=== PATIENT | male | born 1960 | race African-American/Black ===

== ENCOUNTER 2018-10-06 12:47 | Emergency (ER) | payer OTHER ==
[~2018-10-06] VITALS: Ht 182.9 cm; Wt 63.5 kg
[~2018-10-06 12:47] MED LIST: ASPIRIN EC81 MG ORAL; DOCUSATE SODIU100 MG ORAL; FUROSEMIDE40 MG/5 ML ORAL; GLIPIZIDE5 MG ORAL; JANUVIA25 MG ORAL; KENALOG 0.1% CR15 GM APPLIC; LIPITOR80 MG ORAL; LISINOPRIL5 MG ORAL; LORATADINE10 M2 PO; METFORMIN HCL1000 M1 ORAL; NEURONTIN300 MG ORAL; OMEPRAZOLE20 M2 ORAL; PRADAXA110 MG PO; PROCTOZONE-HC30 GM RC
--- NOTE | 2018-10-06 12:50 | NUR ---
ED Nurse Note: Received report. Pt BIBA from home c/o weakness, diarrhea for a few days, and right leg pain 5/10. monitoring engineer applied and VS/BS level taken. Pt stable; awaiting orders.
[2018-10-06 13:00] VITALS: BP 117/70
[2018-10-06] MEDS ORDERED: Sodium Chloride 500ML 500 ML IV ONE ×2 (13:15→13:30)
[2018-10-06 13:30] VITALS: BP 122/84
[2018-10-06] MEDS ORDERED: cefTRIAXone 1 GM in NS 55 ML IVPB ONE (13:30)
[2018-10-06 14:01] LABS: INR 1.1 (0.9-1.1)
[2018-10-06 14:14] LABS: BASOPHILS % (AUTO) 1.8 % (0.0-2.0); EOSINOPHILS % (AUTO) 0.7 % (0.0-3.0); HEMATOCRIT 43.2 % (42.0-52.0); LYMPHOCYTES % (AUTO) 39.8 % (20.0-45.0); MEAN CORPUSCULAR VOLUME 96 FL (80-99); MONOCYTES % (AUTO) 6.3 % (1.0-10.0); NEUTROPHILS % (AUTO) 51.5 % (45.0-75.0); PLATELET COUNT 207 K/UL (150-450)
[2018-10-06 14:24] LABS: ALANINE AMINOTRANSFERASE 137 U/L (12-78); ALBUMIN 3.4 G/DL (3.4-5.0); ALBUMIN/GLOBULIN RATIO 0.9 (1.0-2.7); ALKALINE PHOSPHATASE 145 U/L (46-116); ANION GAP 6 mmol/L (5-15); ASPARTATE AMINO TRANSFERASE 164 U/L (15-37); BILIRUBIN,TOTAL 0.3 MG/DL (0.2-1.0); BLOOD UREA NITROGEN 7 mg/dL (7-18); CALCIUM 8.9 MG/DL (8.5-10.1); CARBON DIOXIDE 30 MMOL/L (21-32); CHLORIDE 99 MMOL/L (98-107); CKMB 5.4 NG/ML (0.0-3.6); CREATINE KINASE 133 U/L (26-308); CREATININE 0.7 MG/DL (0.55-1.30); POTASSIUM 3.9 MMOL/L (3.5-5.1); SODIUM 134 MMOL/L (136-145)
--- NOTE | 2018-10-06 14:36 | Diagnostic Imaging Report ---
EXAM: XR Chest, 1 View CLINICAL HISTORY: Shortness of breath TECHNIQUE: Frontal view of the chest. COMPARISON: Chest x-rays dated FINDINGS: Lungs: Unremarkable. The lungs appear clear. No focal consolidation. Pleural space: Unremarkable. The costophrenic angles are sharp. No visible pneumothorax. Heart: Unremarkable. No cardiomegaly. Mediastinum: Unremarkable. Bones/joints: Unremarkable. Tubes, lines and devices: EKG leads overlie the thorax. IMPRESSION: No acute findings.
--- NOTE | 2018-10-06 14:38 | NUR ---
ED Nurse Note: Pt sleeping, no distress noted.
--- NOTE | 2018-10-06 14:40 | Emergency Room Report ---
History of Present Illness General Chief Complaint: Generalized Weakness Source: Patient Present Illness HPI Patient is a 58-year-old male who presented after increased generalized weakness. Patient reportedly had been having increased diarrheal stools. Patient had recently been hospitalized at [facility] for abscess to his right buttock. Patient had surgical drainage. He has been having increased watery diarrhea. He reports feeling weak all over. Patient had previous CVA with resulting right-sided weakness. Patient was noted to be type II diabetic. He had been followed by home health nurse. Allergies: Coded Allergies: No Known Allergies (Unverified , 07/04/13) Patient History Past Medical History: see triage record Reviewed Nursing Documentation: PMH: Agreed; PSxH: Agreed Nursing Documentation-PMH Past Medical History Deferred: Patient Unconscious Hx Cardiac Problems: Yes - CVA Hx Hypertension: No - Rt hip surgery 08/2018 Hx Diabetes: Yes Hx Gastrointestinal Problems: Yes - PANCREATITIS Review of Systems All Other Systems: negative except mentioned in HPI Physical Exam Vital Signs Date Time Temp Pulse Resp B/P (MAP) Pulse Ox O2 Delivery O2 Flow Rate FiO2 10/06/18 12:41 98.4 78 16 112/70 98 Room Air Sp02 EP Interpretation: reviewed, normal General Appearance: normal inspection, well appearing, no apparent distress, alert, GCS 15, Chronically Ill Head: atraumatic ENT: normal ENT inspection, hearing grossly normal, normal voice Neck: normal inspection, full range of motion, supple, no bony tend Respiratory: normal inspection, lungs clear, normal breath sounds, no respiratory distress, no retraction, no wheezing Cardiovascular #1: regular rate, rhythm, no edema Gastrointestinal: normal inspection, normal bowel sounds, non tender, soft, no guarding, no hernia Genitourinary: no CVA tenderness Musculoskeletal: normal inspection, back normal, normal range of motion Neurologic: alert, responsive, speech normal, motor weakness - right upper and lower extremities Psychiatric: normal inspection, judgement/insight normal, mood/affect normal Skin: no rash, other - slight drainage to right buttock wound, no erythema Medical Decision Making Diagnostic Impression: Primary Impression: generalized weakness Additional Impressions: Uncontrolled diabetes mellitus Diarrhea Dehydration ER Course Patient presented for generalized weakness. Differential diagnosis included was not limited to anemia, urinary tract infection, electrolyte abnormality, hypothyroidism, myocardial infarction, myasthenia gravis, dehydration, among others. Because of complexity of patient's case laboratory testing and imaging studies were ordered. EKG interpreted by me showed normal sinus rhythm with a rate of [address] or T wave changes. Patient was noted to have markedly elevated blood sugar with a greater than 500 level.Patient was noted to have some recent eye infection and likely was treated with IV antibiotics. Given patient's onset of diarrhea this may represent C. difficile colitis. Patient was noted to have some increased generalized weakness. He started on IV hydration. Patient will likely require further inpatient IV hydration and monitoring of his blood sugars. Patient was endorsed to pending final disposition. Laboratory Tests Test 10/06/18 13:09 White Blood Count 4.0 K/UL (4.8-10.8) L Red Blood Count 4.50 M/UL (4.70-6.10) L Hemoglobin 14.0 G/DL (14.2-18.0) L Hematocrit 43.2 % (42.0-52.0) Mean Corpuscular Volume 96 FL (80-99) Mean Corpuscular Hemoglobin 31.0 PG (27.0-31.0) Mean Corpuscular Hemoglobin Concent 32.4 G/DL (32.0-36.0) Red Cell Distribution Width 13.0 % (11.6-14.8) Platelet Count 207 K/UL (150-450) Mean Platelet Volume 10.0 FL (6.5-10.1) Neutrophils (%) (Auto) 51.5 % (45.0-75.0) Lymphocytes (%) (Auto) 39.8 % (20.0-45.0) Monocytes (%) (Auto) 6.3 % (1.0-10.0) Eosinophils (%) (Auto) 0.7 % (0.0-3.0) Basophils (%) (Auto) 1.8 % (0.0-2.0) Prothrombin Time 12.0 SEC (9.30-11.50) H Prothrombin Time INR 1.1 (0.9-1.1) PTT 45 SEC (23-33) H Sodium Level 134 MMOL/L (136-145) L Potassium Level 3.9 MMOL/L (3.5-5.1) Chloride Level 99 MMOL/L (98-107) Carbon Dioxide Level 30 MMOL/L (21-32) Anion Gap 6 mmol/L (5-15) Blood Urea Nitrogen 7 mg/dL (7-18) Creatinine 0.7 MG/DL (0.55-1.30) Estimate Glomerular Filtration Rate > 60 mL/min (>60) Glucose Level 585 MG/DL (74-106) *H Calcium Level 8.9 MG/DL (8.5-10.1) Total Bilirubin 0.3 MG/DL (0.2-1.0) Aspartate Amino Transferase (AST) 164 U/L (15-37) H Alanine Aminotransferase (ALT) 137 U/L (12-78) H Alkaline Phosphatase 145 U/L (46-116) H Total Creatine Kinase 133 U/L (26-308) Creatine Kinase MB 5.4 NG/ML (0.0-3.6) H Creatine Kinase MB Relative Index 4.0 Troponin I 0.012 ng/mL (0.000-0.056) Total Protein 7.2 G/DL (6.4-8.2) Albumin 3.4 G/DL (3.4-5.0) Globulin 3.8 g/dL Albumin/Globulin Ratio 0.9 (1.0-2.7) L Lipase 57 U/L (73-393) L Urine Opiates Screen Negative (NEGATIVE) Urine Barbiturates Screen Negative (NEGATIVE) Phencyclidine (PCP) Screen Negative (NEGATIVE) Urine Amphetamines Screen Negative (NEGATIVE) Urine Benzodiazepines Screen Negative (NEGATIVE) Urine Cocaine Screen Negative (NEGATIVE) Urine Marijuana (THC) Screen Negative (NEGATIVE) Acetone Level Negative (NEGATIVE) EKG Diagnostic Results Rate: normal - 60 Rhythm: NSR ST Segments: no acute changes Last Vital Signs Date Time Temp Pulse Resp B/P (MAP) Pulse Ox O2 Delivery O2 Flow Rate FiO2 10/06/18 13:30 67 12 Room Air 10/06/18 13:30 98.5 122/84 100 Status: unchanged Disposition: XFER SHT-TRM HOSP Condition: Stable Referrals: [facility],REFERRING (PCP) Bernard Brown MD Oct 06, 2018 14:40
[2018-10-06] MEDS ORDERED: Insulin Human Regular 100units/ml 3ml IV ONE (14:45)
[2018-10-06 15:30] VITALS: BP 100/46
[2018-10-06 16:30] VITALS: BP 105/71
--- NOTE | 2018-10-06 17:03 | NUR ---
ED Nurse Note: Pt signed consent for transfer to [facility], will call and give report. ETA 1800 for pickup.
[2018-10-06 18:08] VITALS: BP 112/77
[2018-10-06 18:18] VITALS: BP 112/77
--- NOTE | 2018-10-06 18:18 | NUR ---
ED Nurse Note: phone call report given to KENNETH Jackson
--- NOTE | 2018-10-06 18:22 | NUR ---
ED Nurse Note: pt was given a chicken sandwich. pt.'s belongings were given back to the pt. Pt. transported via gurney with no s/s of acute distress noted
--- NOTE | 2018-10-07 15:26 | Cardiology Report ---
APPROVED REPORT EKG Measurement Heart [id number] Normal sinus rhythm with sinus arrhythmia Normal ECG
== END 2018-10-06 18:22 | disposition short-term general hospital (02) ==
LOC: EDBD 12:47 → EMR 13:36
DX: R53.1 Weakness (principal); E11.65 Type 2 diabetes mellitus with hyperglycemia; R19.7 Diarrhea, unspecified; E86.0 Dehydration; I69.351 Hemiplegia and hemiparesis following cerebral infarction affecting right dominant side
CPT/HCPCS: 36415; 71045; 80053; 80307; 82009; 82550; 82553; 82962; 83690; 84484; 85025; 85610; 85730; 93005; 96361; 96365; 96375; 99285; J0696; J1815

== ENCOUNTER 2019-06-05 20:03 | Emergency (ER) | payer OTHER ==
[~2019-06-05] VITALS: Ht 182.9 cm; Wt 69.4 kg
[2019-06-05 20:05] VITALS: BP 124/72
--- NOTE | 2019-06-05 20:05 | NUR ---
ED Nurse Note: Patient brought in by RA due to hypoglycemia BS 29 at time of arrival at home. As per EMS, patient received 250cc of D10. Has IV line on left forearm 18g patent and intact upon arrival. Has hx of DM, Hep C, Stroke with ride sided weakness. As per patient he hasnt eaten for 8 hours and fainted. Breathing even and unlabored. VSS.
[2019-06-05 21:08] LABS: BASOPHILS % (AUTO) 1.9 % (0.0-2.0); EOSINOPHILS % (AUTO) 3.2 % (0.0-3.0); HEMATOCRIT 34.6 % (42.0-52.0); HEMOGLOBIN 12.2 G/DL (14.2-18.0); LYMPHOCYTES % (AUTO) 49.8 % (20.0-45.0); MEAN CORPUSCULAR VOLUME 88 FL (80-99); MONOCYTES % (AUTO) 10.2 % (1.0-10.0); NEUTROPHILS % (AUTO) 34.9 % (45.0-75.0); PLATELET COUNT 174 K/UL (150-450); RED BLOOD COUNT 3.91 M/UL (4.70-6.10); RED CELL DISTRIBUTION WIDTH 10.3 % (11.6-14.8)
[2019-06-05 21:18] LABS: ANION GAP 10 mmol/L (5-15); BLOOD UREA NITROGEN 7 mg/dL (7-18); CALCIUM 8.5 MG/DL (8.5-10.1); CARBON DIOXIDE 25 MMOL/L (21-32); CHLORIDE 108 MMOL/L (98-107); CREATININE 0.5 MG/DL (0.55-1.30); POTASSIUM 3.5 MMOL/L (3.5-5.1); SODIUM 143 MMOL/L (136-145)
[2019-06-05 21:29] LABS: ALANINE AMINOTRANSFERASE 54 U/L (12-78); ALBUMIN 3.3 G/DL (3.4-5.0); ALBUMIN/GLOBULIN RATIO 0.9 (1.0-2.7); ALKALINE PHOSPHATASE 81 U/L (46-116); ASPARTATE AMINO TRANSFERASE 39 U/L (15-37); BILIRUBIN,TOTAL 0.3 MG/DL (0.2-1.0); CREATINE KINASE 230 U/L (26-308)
--- NOTE | 2019-06-05 21:31 | Emergency Room Report ---
History of Present Illness General Chief Complaint: Abnormal Labs Source: Patient, EMS Present Illness HPI Patient presents via EMS after his blood sugar was determined to be 29. Apparently the patient had a low blood sugar 2 days ago. No changes in his insulin were undertaken. He states he did not eat this evening. He is taking 20 units twice a day of insulin. He denies any chest pain, shortness of breath , nausea, vomiting, diarrhea. Status post stroke with right weakness. Type 2 diabetes but takes insulin. History of pancreatitis. History of abscess incision and drainage. History of hepatitis C. No fevers, chills, sore throat, chest pain, palpitations, nausea, vomiting, diarrhea, dysuria, abdominal pain, shortness of breath, joint pain, rashes, depression, anxiety, headache. Allergies: Coded Allergies: No Known Allergies (Unverified , 07/04/13) Patient History Past Medical History: see triage record Social History Narrative Lives with mother who administers medication -walks with walker Reviewed Nursing Documentation: PMH: Agreed; PSxH: Agreed Nursing Documentation-PMH Past Medical History: No History, Except For Hx Hypertension: No - Rt hip surgery 08/2018 Hx Diabetes: Yes Hx Gastrointestinal Problems: Yes - PANCREATITIS Hx Cerebrovascular Accident: Yes - TIA Review of Systems All Other Systems: negative except mentioned in HPI Physical Exam Vital Signs Date Time Temp Pulse Resp B/P (MAP) Pulse Ox O2 Delivery O2 Flow Rate FiO2 06/05/19 20:00 98.2 54 22 124/72 (89) 98 06/05/19 20:05 Room Air Sp02 EP Interpretation: reviewed, normal General Appearance: alert, other - GCS 14, Chronically Ill Head: normocephalic, atraumatic Eyes: bilateral eye normal inspection, bilateral eye PERRL, bilateral eye EOMI ENT: normal pharynx, moist mucus membranes Neck: full range of motion, supple Respiratory: lungs clear, normal breath sounds Cardiovascular #1: regular rate, rhythm, no edema Cardiovascular #2: 2+ radial (L) Gastrointestinal: normal bowel sounds, non tender, soft, scaphoid Genitourinary: no CVA tenderness Musculoskeletal: back normal, other - Contractures and atrophy Neurologic: alert, DTRs symmetric, sensory intact, speech normal, motor weakness - Upper extremities, other - Slight abnormal coordination, oriented - X2 Psychiatric: mood/affect normal Skin: no rash Medical Decision Making Diagnostic Impression: Primary Impression: Hypoglycemia Additional Impression: Type 2 diabetes mellitus Qualified Codes: E11.69 - Type 2 diabetes mellitus with other specified complication; Z79.4 - terminal carman (current) use of insulin ER Course Patient presents via EMS with hypoglycemia. Initial includes excess insulin, inadequate oral intake, acute myocardial infarction, occult infection, renal failure amongst others. Evaluation with EKG, chest x-ray and labs. The patient will be given food to eat and repeat Accu-Cheks will be obtained. Patient placed on color television console monitor. EKG without injury. Chest x-ray no infiltrate. Labs unremarkable. Repeat Accu-Chek stable. Discharge glucose 175. Discussed treatment plan with patient and mother. She claims she ate today. I advised that insulin needed to be decreased. He has an appointment tomorrow with his private physician. Patient stable for outpatient observation and treatment. Laboratory Tests Test 06/05/19 20:37 06/05/19 21:07 06/05/19 21:19 White Blood Count 6.0 K/UL (4.8-10.8) Red Blood Count 3.91 M/UL (4.70-6.10) L Hemoglobin 12.2 G/DL (14.2-18.0) L Hematocrit 34.6 % (42.0-52.0) L Mean Corpuscular Volume 88 FL (80-99) Mean Corpuscular Hemoglobin 31.2 PG (27.0-31.0) H Mean Corpuscular Hemoglobin Concent 35.3 G/DL (32.0-36.0) Red Cell Distribution Width 10.3 % (11.6-14.8) L Platelet Count 174 K/UL (150-450) Mean Platelet Volume 7.1 FL (6.5-10.1) Neutrophils (%) (Auto) 34.9 % (45.0-75.0) L Lymphocytes (%) (Auto) 49.8 % (20.0-45.0) H Monocytes (%) (Auto) 10.2 % (1.0-10.0) H Eosinophils (%) (Auto) 3.2 % (0.0-3.0) H Basophils (%) (Auto) 1.9 % (0.0-2.0) Sodium Level 143 MMOL/L (136-145) Potassium Level 3.5 MMOL/L (3.5-5.1) Chloride Level 108 MMOL/L (98-107) H Carbon Dioxide Level 25 MMOL/L (21-32) Anion Gap 10 mmol/L (5-15) Blood Urea Nitrogen 7 mg/dL (7-18) Creatinine 0.5 MG/DL (0.55-1.30) L Estimate Glomerular Filtration Rate > 60 mL/min (>60) Glucose Level 74 MG/DL (74-106) Calcium Level 8.5 MG/DL (8.5-10.1) Total Bilirubin 0.3 MG/DL (0.2-1.0) Aspartate Amino Transferase (AST) 39 U/L (15-37) H Alanine Aminotransferase (ALT) 54 U/L (12-78) Alkaline Phosphatase 81 U/L (46-116) Total Creatine Kinase 230 U/L (26-308) Troponin I 0.027 ng/mL (0.000-0.056) Pro-B-Type Natriuretic Peptide 90 pg/mL (0-125) Total Protein 6.9 G/DL (6.4-8.2) Albumin 3.3 G/DL (3.4-5.0) L Globulin 3.6 g/dL Albumin/Globulin Ratio 0.9 (1.0-2.7) L Lipase 23 U/L (73-393) L Urine Color Yellow Urine Appearance Clear Urine pH 5 (4.5-8.0) Urine Specific [place] 1.020 (1.005-1.035) Urine Protein Negative (NEGATIVE) Urine Glucose (UA) Negative (NEGATIVE) Urine Ketones Negative (NEGATIVE) Urine Blood Negative (NEGATIVE) Urine Nitrite Negative (NEGATIVE) Urine Bilirubin Negative (NEGATIVE) Urine Urobilinogen 1 MG/DL (0.0-1.0) H Urine Leukocyte Esterase 1+ (NEGATIVE) H Urine RBC 0-2 /HPF (0 - 0) H Urine WBC 2-4 /HPF (0 - 0) Urine Squamous Epithelial Cells None /LPF (NONE/OCC) Urine Bacteria Few /HPF (NONE) Urine Opiates Screen Negative (NEGATIVE) Urine Barbiturates Screen Negative (NEGATIVE) Phencyclidine (PCP) Screen Negative (NEGATIVE) Urine Amphetamines Screen Negative (NEGATIVE) Urine Benzodiazepines Screen Negative (NEGATIVE) Urine Cocaine Screen Negative (NEGATIVE) Urine Marijuana (THC) Screen Negative (NEGATIVE) Prothrombin Time 12.7 SEC (9.30-11.50) H Prothrombin Time INR 1.2 (0.9-1.1) H PTT 43 SEC (23-33) H EKG Diagnostic Results Rate: bradycardiac Rhythm: NSR ST Segments: no acute changes Rhythm Strip Diag. Results EP Interpretation: yes Rhythm: no PVC's, no ectopy, other - Bradycardia Chest X-Ray Diagnostic Results Chest X-Ray Diagnostic Results : Chest X-Ray Ordered: Yes # of Views/Limited/Complete: 1 View Indication: Other EP Interpretation: Yes Interpretation: no consolidation, no effusion, no pneumothorax Impression: No acute disease Electronically Signed by: Electronically signed by Sylvain Rousseau MD Last Vital Signs Date Time Temp Pulse Resp B/P (MAP) Pulse Ox O2 Delivery O2 Flow Rate FiO2 06/05/19 22:40 98.2 60 20 124/72 98 Room Air Status: improved Disposition: HOME, SELF-CARE Condition: Improved Sylvain Rousseau MD Jun 05, 2019 21:31
[2019-06-05 21:36] LABS: APPEARANCE,URINE CLEAR; BILIRUBIN, URINE NEGATIVE (NEGATIVE); GLUCOSE, URINE (UA) NEGATIVE (NEGATIVE); KETONES,URINE NEGATIVE (NEGATIVE); LEUKOCYTE ESTERASE ,URINE 1+ (NEGATIVE); NITRITE,URINE NEGATIVE (NEGATIVE); PH,URINE 5 (4.5-8.0); PROTEIN,URINE NEGATIVE (NEGATIVE); UROBILINOGEN,URINE 1 MG/DL (0.0-1.0)
[2019-06-05 21:38] LABS: COLOR,URINE YELLOW
[2019-06-05 21:50] LABS: INR 1.2 (0.9-1.1)
[2019-06-05 22:30] VITALS: BP 130/79
[2019-06-05 22:40] VITALS: BP 124/72
--- NOTE | 2019-06-05 22:40 | NUR ---
ER DISCHARGE NOTE: Patient is cleared to be discharged per ERMD, pt is aox4, on room air, with stable vital signs. pt was given dc and prescription instructions, pt was able to verbalize understanding, pt id band and iv site removed without complications. pt is able to ambulate with steady gait. pt took all belongings. Accompanied home by family member.
--- NOTE | 2019-06-06 12:26 | Diagnostic Imaging Report ---
Indication: Dyspnea Comparison: 10/06/2018 A single view chest radiograph was obtained. Findings: There is a vague density over the left midchest but this was present previously as well and likely attenuation from soft tissue. There is no definite infiltrate. Heart size is normal. Bones are unremarkable. IMPRESSION: No acute disease
--- NOTE | 2019-06-08 13:15 | Cardiology Report ---
APPROVED REPORT EKG Measurement Heart [id number] Sinus bradycardia with premature supraventricular complexes Early repolarization Otherwise normal ECG
== END 2019-06-05 22:40 | disposition home or self-care (01) ==
LOC: EDBD 20:03 → EMR 20:25
DX: E11.69 Type 2 diabetes mellitus with other specified complication (principal); Z79.4 Long term (current) use of insulin; I69.851 Hemiplegia and hemiparesis following other cerebrovascular disease affecting right dominant side; B19.20 Unspecified viral hepatitis C without hepatic coma
CPT/HCPCS: 36415; 71045; 80053; 80307; 81003; 82550; 83690; 83880; 84484; 85025; 85610; 85730; 93005; Z7502; 99284